=== PATIENT | male | born 1950 | race Caucasian/White ===

== ENCOUNTER 2018-09-07 15:13 | Outpatient (CLI) | payer MEDICARE, BC ==
--- NOTE | 2018-09-07 15:50 | Diagnostic Imaging Report ---
ANGELITO CARTER [facility] [address] [facility].[address] [id number] Report Submission Date: Sep 07, 2018 3:44:29 PM AU PAIR Patient Study Name: JAI GILMAN Date: Sep 07, 2018 3:14:11 PM AU PAIR Modality Type: DX Gender: M Description: CHEST : 46 Institution: [facility] Physician: ANGELITO CARTER PA and lateral chest History: Difficulty breathing at night PA and lateral chest dated September 07, 2018 is without prior radiographs for comparison. There is abnormal density in the left suprahilar region. This finding is atypical. This finding could represent a focal pneumonic infiltrate in this location. However, the possibility of a left suprahilar mass would not be excluded. Consider chest CT. The right lung is clear and there is no pleural effusion. Impression: There is asymmetric density in the left suprahilar region. This finding could represent a small focus of pneumonic infiltrate. However, the possibility of a mass in the left AP window would not be excluded. Consider chest CT as there are no comparison studies. Electronically signed on Sep 07, 2018 3:44:29 PM AU PAIR by: Kassandra DIEGO
== END 2018-09-07 15:14 ==
LOC: RAD 15:13
PROVIDERS: ATTEND Nurse Practitioner Family
DX: R06.01 Orthopnea (principal)
CPT/HCPCS: 71046